=== PATIENT | male | born 1980 | race Hispanic/Latino ===

== ENCOUNTER 2018-02-04 07:12 | Emergency (ER) | payer OTHER ==
[2018-02-04] MEDS ORDERED: Adacel (T-DAP) 0.5 ML VIAL ONE (07:51)
[2018-02-04] MEDS ORDERED: Ibuprofen 200 MG TAB ONE (08:40)
--- NOTE | 2018-02-04 20:14 | RAD ---
LEFT HAND THREE VIEWS: 02/04/18 No fracture was seen. As on the wrist films there appears to be some opacity in the soft tissues just lateral to the scaphoid, just proximal to the base of the first metacarpal. A wound here potentially with some debris in it is suspected. IMPRESSION: Possible debris in wound. Bones unremarkable. POS: HOME
--- NOTE | 2018-02-04 20:42 | RAD ---
LEFT WRIST THREE VIEWS: 02/04/18 No fracture was seen. There may be a small soft tissue laceration just lateral to the scaphoid. There might even be a small amount of foreign body in the wound. Other than this, the exam was unremarkabl e. IMPRESSION: Question of small laceration laterally, potentially with some minimal amounts of debris within it. POS: HOME
== END 2018-02-04 08:42 | disposition home or self-care (01) ==
LOC: BURERS 07:12
DX: S61.512A Laceration without foreign body of left wrist, initial encounter (principal); W26.8XXA Contact with other sharp object(s), not elsewhere classified, initial encounter; Y92.69 Other specified industrial and construction area as the place of occurrence of the external cause
CPT/HCPCS: 12002; 90471; 90715; J2997

== ENCOUNTER 2021-01-29 13:47 | Outpatient (CLI) | payer OTHER | END 2021-01-29 13:48 | disposition home or self-care (01) | LOC: BURRAD 13:47 | PROVIDERS: ATTEND Nurse Practitioner Family | DX: S83.511A Sprain of anterior cruciate ligament of right knee, initial encounter (principal); S83.512A Sprain of anterior cruciate ligament of left knee, initial encounter; M54.5 Low back pain; M25.462 Effusion, left knee; K59.00 Constipation, unspecified; M25.78 Osteophyte, vertebrae | CPT/HCPCS: 72100 ==